=== PATIENT | female | born 1975 | race Caucasian/White ===

== ENCOUNTER 2018-05-09 13:40 | Emergency (ER) | payer MEDICAID ==
[~2018-05-09] VITALS: Ht 165.1 cm; Wt 59.7 kg
[~2018-05-09 13:40] MED LIST: GLYB2.5T2 PO; PREN1TAB49 PO
[2018-05-09 13:54] VITALS: Ht 165.1 cm; Wt 59.7 kg
[2018-05-09] MEDS ORDERED: ACETAMINOPHEN 325 MG TAB PO ONE (16:00)
[2018-05-09] MEDS ORDERED: TRAM50TA2 PO (17:54)
[2018-05-09] MEDS ORDERED: IBUP-1542 PO (17:54)
--- NOTE | 2018-05-09 17:56 | ERD ---
ER Documentation Chief Complaint Chief Complaint Complains of back pain S/P a fall yesterday HPI 43 female presents with right flank pain after a fall yesterday. She slipped on some stairs and landed directly on her left flank area. Denies any hematuria, hemoptysis, shortness of breath, neck pain, loss of consciousness. ROS All systems reviewed and are negative except as per history of present illness. Medications Home Meds Active Scripts Tramadol HCl (Tramadol HCl) 50 Mg Tablet, 50 MG PO Q4 PRN for PAIN, #15 TAB Prov:SHA PRABHAKAR MD 05/09/18 Ibuprofen* (Motrin*) 600 Mg Tab, 600 MG PO Q6, #20 TAB Prov:SHA PRABHAKAR MD 05/09/18 Reported Medications Glyburide* (Glyburide*) 2.5 Mg Tablet, 2.5 MG PO BEFORE LUNCH AND HS 07/18/12 Vits W-Ca,Fe,Fa(<1MG) () 1 Tab Tablet, 1 TAB PO 07/18/12 Allergies Allergies: Coded Allergies: No Known Drug Allergy (Verified Allergy, Unknown, 07/18/12) PMhx/Soc History of Surgery: Yes ( x3) Anesthesia Reaction: No Hx Neurological Disorder: No Hx Respiratory Disorders: No Hx Cardiac Disorders: Yes (high choleterol ) Hx Psychiatric Problems: No Hx Miscellaneous Medical Probl: Yes (DM) Hx Alcohol Use: No Hx Substance Use: No Hx Tobacco Use: No FmHx Family History: No diabetes, No coronary disease, No other Physical Exam Vitals Vital Signs Date Temp Pulse Resp B/P (MAP) Pulse Ox O2 O2 Flow FiO2 Time Delivery Rate 05/09/18 98.9 80 20 114/60 99 13:54 (78) Physical Exam Const: No acute distress Head: Atraumatic Eyes: Normal Conjunctiva ENT: Normal External Ears, Nose and Mouth. Neck: Full range of motion. No meningismus. Resp: Clear to auscultation bilaterally Cardio: Regular rate and rhythm, no murmurs Abd: Soft, non tender, non distended. Normal bowel sounds Skin: No petechiae or rashes Back: No midline evidence of deformities. Mild tenderness left approximately T10-T12 without ecchymosis. Ext: No cyanosis, or edema Neur: Awake and alert Psych: Normal Mood and Affect Results 24 hrs Laboratory Tests Test 05/09/18 16:09 05/09/18 16:11 Bedside Urine pH (LAB) 6.0 Bedside Urine Protein (LAB) Negative Bedside Urine Glucose (UA) Negative Bedside Urine Ketones (LAB) Negative Bedside Urine Blood 1+ Bedside Urine Nitrite (LAB) Negative Bedside Urine Leukocyte Esterase (L Negative POC Beta HCG, Qualitative NEGATIVE Current Medications Medications Dose Sig/[place] Start Time Status Last (Trade) Ordered Route PRN Stop Time Admin Dose Reason Admin 650 mg ONCE ONCE 05/09/18 DC 05/09/18 Acetaminophen PO 16:00 16:04 (Tylenol 05/09/18 16:01 Tab) Procedures/MDM X-ray right ribs 2V Interpreted by me: Soft Tissue: No acute abnormalities Bones: No acute abnormalities Mediastinum/Cardiac Silhouette/Lungs:No acute abnormalities impression-normal right rib x-rays Which is 1+ hemoglobin. HCG negative. Limited renal ultrasound performed due to mild hemoglobin and urine shows no acute abnormalities. Patient was given Tylenol for pain. Patient presents with left rib pain after fall yesterday. She likely has rib contusion. There is no evidence of fracture, hemothorax, pneumothorax, or symptoms suggest significant renal injury. She will be discharged home with tramadol, ibuprofen, primary care follow-up and return precautions for fevers, vomiting, dizziness, shortness of breath, new worsening symptoms with primary care doctor. The patient was stable with no new complaints during the ER course. Clinically, there is no current evidence to suggest meningitis, sepsis, acute abdomen, pneumonia, stroke, acute coronary syndrome, pulmonary embolism, aortic dissection or any other emergent condition appearing to require further evaluation or hospitalization. Patient counseled regarding my diagnostic impression and care plan. Prior to discharge all questions answered. Pt agrees with treatment plan and understands strict return precautions. Pt is instructed to follow up with primary care provider within 24-48 hours. Precautionary instructions provided including instructions to return to the ER if not improving or for any worsening or changing symptoms or concerns. Departure Diagnosis: Primary Impression: Injury of back Encounter type: initial encounter Qualified Codes: S39.92XA - Unspecified injury of lower back, initial encounter Condition: Stable Patient Instructions: Back Sprain/Strain Referrals: NO PRIMARY,CARE PHYSICIAN (PCP) Additional Instructions: Examinations normal today or so no significant abnormal findings. Recheck for new or worsening symptoms with primary care doctor. SHA PRABHAKAR MD May 09, 2018 17:56
[2018-05-09 18:02] VITALS: BP 123/66; PULSE 78; RESP 20
== END 2018-05-09 18:02 | disposition home or self-care (01) ==
LOC: FTE 13:40
DX: S39.92XA Unspecified injury of lower back, initial encounter (principal); E11.9 Type 2 diabetes mellitus without complications; W01.0XXA Fall on same level from slipping, tripping and stumbling without subsequent striking against object, initial encounter; Y92.9 Unspecified place or not applicable; Z79.84 Long term (current) use of oral hypoglycemic drugs
CPT/HCPCS: 71100; 76775; 81003; 81025; Z7502; Z7610